=== PATIENT | female | born 1980 | race Two or more races ===

== ENCOUNTER → 2022-08-14 06:55 | Outpatient (CLI) | payer OTHER | END | disposition home or self-care (01) | LOC: LAB 08-13 17:19 | PROVIDERS: ATTEND Obstetrics & Gynecology | DX: E03.8 Other specified hypothyroidism (principal); E55.9 Vitamin D deficiency, unspecified; E53.9 Vitamin B deficiency, unspecified; R73.09 Other abnormal glucose; M10.071 Idiopathic gout, right ankle and foot; N39.0 Urinary tract infection, site not specified; M06.9 Rheumatoid arthritis, unspecified; R50.9 Fever, unspecified; Z12.11 Encounter for screening for malignant neoplasm of colon; B18.2 Chronic viral hepatitis C; A64 Unspecified sexually transmitted disease; R73.02 Impaired glucose tolerance (oral); E78.2 Mixed hyperlipidemia; E66.9 Obesity, unspecified; I10 Essential (primary) hypertension; E78.5 Hyperlipidemia, unspecified; Z13.1 Encounter for screening for diabetes mellitus; Z13.6 Encounter for screening for cardiovascular disorders ==